=== PATIENT | male | born 1950 | race Hispanic/Latino ===

== ENCOUNTER 2020-01-18 22:58 | Emergency (ER) | payer MEDICARE ==
[~2020-01-18 22:58] MED LIST: ASPI-1005 PO; IPRA3AMP24 IH; LEVO500T2 PO; LISI-617 PO; METO25TA6 PO; NEBU-227 MC; OSEL75 PO; PRED20TA3 PO
[2020-01-18] MEDS ORDERED: MORPHINE SULFATE 4 MG/1ML SYG ONE (23:28)
[2020-01-18] MEDS ORDERED: ONDANSETRON HCL 4 MG/2 ML VIAL ONE (23:28)
[2020-01-18] MEDS ORDERED: SODIUM CHLORIDE 0.9% 500ML 500 ML IV ONE (23:29)
[2020-01-18 23:33] LABS: BASOPHILS % (AUTO) 0.3 % (0.0-5.0); EOSINOPHILS % (AUTO) 4.1 % (0.0-8.0); HEMATOCRIT 38.3 % (42-54); LYMPHOCYTES % (AUTO) 13.5 % (21.0-51.0); MEAN CORPUSCULAR HEMOGLOBIN 30.5 pg (27.0-33.0); MEAN CORPUSCULAR HGB CONC 33.2 g/dL (32.0-36.0); MEAN CORPUSCULAR VOLUME 91.8 fL (79-99); MONOCYTES % (AUTO) 11.4 % (3.0-13.0); NEUTROPHILS % (AUTO) 65.4 % (40.0-77.0); PLATELET COUNT (AUTO) 199 K/uL (130-400); RED BLOOD CELL COUNT(AUTO) 4.17 MIL/uL (4.50-6.20); RED CELL DISTRIBUTION WIDTH 12.5 % (11.0-15.5); WHITE BLOOD COUNT (AUTO) 8.6 K/uL (4.8-10.8)
[2020-01-18 23:44] LABS: CREATININE 1.1 mg/dL (0.5-1.5); POTASSIUM 4.4 mmol/L (3.5-5.1)
[2020-01-18 23:48] LABS: ALBUMIN 2.9 g/dL (3.5-5.0); BILIRUBIN,TOTAL 0.3 mg/dL (0.2-1.0); TOTAL PROTEIN, SERUM 7.7 g/dL (6.0-8.3)
[2020-01-19 00:50] LABS: APPEARANCE,URINE Clear (CLEAR); BILIRUBIN,URINE Negative (NEGATIVE); COLOR,URINE Yellow (YELLOW); GLUCOSE, URINE (UA) Negative (NEGATIVE); KETONES,URINE Negative (NEGATIVE); LEUKOCYTE ESTERASE ,URINE Negative (NEGATIVE); NITRATE,URINE Negative (NEGATIVE); OCCULT BLOOD,URINE Trace (NEGATIVE); PROTEIN,URINE Negative (NEGATIVE); UROBILINOGEN,URINE 0.2 mg/dL (0.2-1.0)
[2020-01-19 00:58] LABS: BACTERIA,URINE None Seen /HPF (None Seen); RBC,URINE None Seen /HPF (0-1); SQUAMOUS EPITHELIAL CELL,UR Rare /HPF (0-2); WBC,URINE None Seen /HPF (0-1)
[2020-01-19] MEDS ORDERED: IOHEXOL-350 75 ML VIAL IV ONE (01:03)
== END 2020-01-19 03:10 | disposition home or self-care (01) ==
LOC: EDH 22:58
DX: R10.84 Generalized abdominal pain (principal); Z88.0 Allergy status to penicillin; Z72.0 Tobacco use; Z87.01 Personal history of pneumonia (recurrent)
CPT/HCPCS: 36415; 74177; 80053; 81001; 82550; 83690; 84484; 85025; 93005; 96374; 96375; 99285; J2270; J2405; J7040; Q9967

== ENCOUNTER → 2022-11-28 | Outpatient (CLI) | payer MEDICARE ==
[~2022-11-28] MED LIST changes: -ASPI-1005 PO; -LEVO500T2 PO; -LISI-617 PO; -METO25TA6 PO; -OSEL75 PO; -PRED20TA3 PO
== END | disposition home or self-care (01) ==
LOC: SHCH 10:32
PROVIDERS: ATTEND Internal Medicine Cardiovascular Disease
DX: I10 Essential (primary) hypertension (principal); R06.00 Dyspnea, unspecified; E78.5 Hyperlipidemia, unspecified
CPT/HCPCS: 93306

== ENCOUNTER → 2022-11-29 | Outpatient (CLI) | payer MEDICARE ==
[~2022-11-29] MED LIST changes: +ALBUTEROL 0.083% 2.5 MG/3 ML INH IH ONE
== END | disposition home or self-care (01) ==
LOC: RESP 13:09
PROVIDERS: ATTEND Internal Medicine Cardiovascular Disease
DX: J44.9 Chronic obstructive pulmonary disease, unspecified (principal); R06.09 Other forms of dyspnea
CPT/HCPCS: 94060; 94727; 94729

== ENCOUNTER 2023-10-08 09:30 | Emergency (ER) | payer MEDICARE ==
[~2023-10-08] VITALS: Ht 165.1 cm; Wt 68.5 kg
[~2023-10-08 09:30] MED LIST changes: -ALBUTEROL 0.083% 2.5 MG/3 ML INH IH ONE
[2023-10-08] MEDS ORDERED: IPRATROPIUM/ALBUTEROL SULFATE 3 ML SOLUTION IH ONE ×2 (10:00→14:00)
[2023-10-08 10:12] LABS: HEMATOCRIT 47.9 % (42-54); MEAN CORPUSCULAR HEMOGLOBIN 30.5 pg (27.0-33.0); MEAN CORPUSCULAR HGB CONC 34.2 g/dL (32.0-36.0); MEAN CORPUSCULAR VOLUME 89.2 fL (79-99); PLATELET COUNT (AUTO) 276 K/uL (130-400); RED BLOOD CELL COUNT(AUTO) 5.37 MIL/uL (4.50-6.20); RED CELL DISTRIBUTION WIDTH 13.2 % (11.0-15.5)
[2023-10-08 10:16] VITALS: PULSE 102; RESP 18
[2023-10-08 10:25] LABS: SARS-CoV-2, RNA, NAAT NEGATIVE SARS CoV-2 (NEGATIVE)
[2023-10-08 10:31] LABS: INFLUENZA TYPE A Negative For Type A (NEGATIVE); INFLUENZA TYPE B Negative For Type B (NEGATIVE)
[2023-10-08 10:37] LABS: ALBUMIN 3.9 g/dL (3.5-5.0); BILIRUBIN,TOTAL 0.4 mg/dL (0.2-1.0); POTASSIUM 4.3 mmol/L (3.5-5.1); TOTAL PROTEIN, SERUM 8.4 g/dL (6.0-8.3)
[2023-10-08 11:31] LABS: LYMPHOCYTES % (MANUAL) 10 % (22-44); MAN.DIFF COMMENT-IMPRESSION MANUAL DIFFERENTIAL; MONOCYTES % (MANUAL) 15 % (2-9); PLATELET MORPHOLOGY COMMENT ADEQUATE; SEGMENTED NEUTROPHILS % 75 % (40-70); TOTAL CELLS COUNTED 100
[2023-10-08 13:58] VITALS: PULSE 97; RESP 18
[2023-10-08] MEDS ORDERED: SOLU-MEDROL 125MG VIAL IVP ONE (14:00)
[2023-10-08 16:15] VITALS: BP 122/80; PULSE 97; RESP 18; O2SAT 95
[2023-10-08] MEDS ORDERED: ALBUHFA IH (16:18)
[2023-10-08] MEDS ORDERED: GUAI5LIQ13 PO (16:18)
[2023-10-08] MEDS ORDERED: DOXY100T2 PO (16:18)
[2023-10-08] MEDS ORDERED: PRED20TA3 PO (16:18)
== END 2023-10-08 16:31 | disposition home or self-care (01) ==
LOC: EDH 09:30
DX: J44.1 Chronic obstructive pulmonary disease with (acute) exacerbation (principal); E78.00 Pure hypercholesterolemia, unspecified; I10 Essential (primary) hypertension; Z88.0 Allergy status to penicillin; Z20.822 Contact with and (suspected) exposure to COVID-19
CPT/HCPCS: 99285; 96374; 71045; 87635; 84484; 80053; 83880; 85025; 87804 ×2; 36415; 93005; 94640 ×2; C9803; J2930